=== PATIENT | female | born 2000 | race African-American/Black ===

== ENCOUNTER 2021-09-08 22:51 | Emergency (ER) | payer OTHER ==
[~2021-09-08] VITALS: Ht 172.7 cm; Wt 68.0 kg
[2021-09-08] MEDS ORDERED: ACETAMINOPHEN PO (23:34)
[2021-09-09 01:31] VITALS: BP 129/81
[2021-09-10] MEDS ORDERED: CEPHALEXIN500 MG PO (22:39)
== END 2021-09-09 01:32 | disposition home or self-care (01) ==
LOC: ER 22:51
DX: B34.9 Viral infection, unspecified (principal); Z20.822 Contact with and (suspected) exposure to COVID-19; R53.81 Other malaise; J45.909 Unspecified asthma, uncomplicated

== ENCOUNTER 2021-09-10 19:20 | Emergency (ER) | payer OTHER ==
[~2021-09-10] VITALS: Ht 154.9 cm; Wt 63.5 kg
[~2021-09-10 19:20] MED LIST: ACETAMINOPHEN PO
[2021-09-10 19:53] VITALS: BP 124/60
[2021-09-10 20:43] LABS: URINE BILIRUBIN NEGATIVE (Negative); URINE BLOOD 2+ (Negative); URINE CLARITY SL CLOUDY; URINE COLOR YELLOW; URINE GLUCOSE-RANDOM* NEGATIVE (Negative); URINE KETONES 3+ (Negative); URINE NITRITE-REFLEX NEGATIVE (Negative); URINE PROTEIN (DIPSTICK) NEGATIVE (Negative); URINE UROBILINOGEN 0.2 E.U./dl (0.2-1.0)
[2021-09-10 20:47] LABS: URINE LEUKOCYTES-REFLEX 2+ (Negative)
[2021-09-10 20:52] LABS: MUCUS 0-3 Light strn/LPF (None Seen); SQUAMOUS 4-10 Moderate /LPF (0-3)
[2021-09-10 20:53] LABS: CASTS None Seen /LPF (None Seen); CRYSTALS None Seen /LPF (None Seen); URINE RBC 3-10 Few /HPF (NONE SEEN); URINE WBC-REFLEX 6-15 Few /HPF (0-5)
[2021-09-10 21:12] LABS: HEMATOCRIT 29.4 % (37.0-47.0); HEMOGLOBIN 9.3 gm/dL (12.0-15.0); MCH 29.4 pg (26.0-34.0); MCHC 31.6 g/dL (28.0-37.0); MCV 93.1 fL (80.0-100.0); RBC 3.16 mil/uL (4.20-5.00); WBC 12.2 thou/uL (4.0-11.0)
[2021-09-10 21:15] LABS: CALCIUM 8.6 mg/dL (8.5-10.1); CREATININE 0.7 mg/dL (0.6-1.0); POTASSIUM 3.8 mmol/L (3.5-5.1)
[2021-09-10 21:21] LABS: ALBUMIN 2.6 g/dL (3.4-5.0); TOTAL BILIRUBIN 0.3 mg/dL (0.2-1.0); TOTAL PROTEIN 6.9 g/dL (6.4-8.2)
[2021-09-10] MEDS ORDERED: CEPHALEXIN500 MG PO (22:39)
== END 2021-09-10 23:25 | disposition home or self-care (01) ==
LOC: ER 19:20
PROVIDERS: Nurse Practitioner Family
DX: N39.0 Urinary tract infection, site not specified (principal); Z20.822 Contact with and (suspected) exposure to COVID-19; J45.909 Unspecified asthma, uncomplicated; Z98.890 Other specified postprocedural states; Z79.899 Other long term (current) drug therapy